=== PATIENT | female | born 1990 | race African-American/Black ===

== ENCOUNTER 2023-08-25 22:18 | Emergency (ER) | payer MEDICAID ==
[~2023-08-25] VITALS: Ht 160 cm; Wt 88.5 kg
[2023-08-25] MEDS ORDERED: IBUPROFEN 400 MG TABLET ONE (22:55)
[2023-08-25] MEDS ORDERED: IBUPROFEN 400 MG TABLET PO ONE (23:00)
[2023-08-26] MEDS ORDERED: AZITHROMYCIN 250 MG TABLET PO ONE
[2023-08-26] MEDS ORDERED: METRONIDAZOLE 500 MG TABLET PO ONE
[2023-08-26] MEDS ORDERED: CEFTRIAXONE 500 MG VIAL IM ONE
[2023-08-26] MEDS ORDERED: CEFTRIAXONE 500 MG VIAL ONE (00:32)
[2023-08-26] MEDS ORDERED: AZITHROMYCIN 250 MG TABLET ONE (00:33)
[2023-08-26] MEDS ORDERED: LIDOCAINE /MPF 1% VIAL 5 ML VIAL ONE (00:33)
[2023-08-26] MEDS ORDERED: METRONIDAZOLE 500 MG TABLET ONE (00:33)
[2023-08-26 01:22] VITALS: BP 132/66; TEMP 98.2; O2SAT 97
== END 2023-08-26 01:22 | disposition home or self-care (01) ==
LOC: ER 22:21
DX: S00.83XA Contusion of other part of head, initial encounter (principal); S50.11XA Contusion of right forearm, initial encounter; Y09 Assault by unspecified means; Y93.89 Activity, other specified; Y92.89 Other specified places as the place of occurrence of the external cause; Y99.8 Other external cause status
CPT/HCPCS: 99285; 70486; 73090; 96372; J0696; J3490